=== PATIENT | female | born 1985 | race Caucasian/White ===

== ENCOUNTER 2018-06-02 13:22 | Emergency (ER) | payer OTHER ==
[~2018-06-02] VITALS: Ht 165.1 cm; Wt 67.1 kg
[2018-06-02 13:48] LABS: ABSOLUTE NEUTROPHILS 7.7 thou/uL (1.4-8.2); BASOPHILS 0.5 % (0.0-2.0); EOSINOPHILS 0.7 % (0.0-3.0); HEMATOCRIT 43.3 % (37.0-47.0); HEMOGLOBIN 14.8 gm/dL (12.0-15.0); LYMPHOCYTES 11.1 % (24.0-44.0); MCH 31.8 pg (26.0-34.0); MCHC 34.1 g/dL (28.0-37.0); MCV 93.1 fL (80.0-100.0); MONOCYTES 5.4 % (1.0-8.0); PLATELET COUNT 226 thou/uL (150-400); POLYS 82.3 % (36.0-66.0); RBC 4.65 mil/uL (4.20-5.00); RDW 13.1 % (10.5-14.5); WBC 9.4 thou/uL (4.0-11.0)
[2018-06-02 14:03] LABS: ANION GAP 11 mmol/L (7-16); BUN 17 mg/dL (7-18); CALCIUM 9.4 mg/dL (8.5-10.1); CHLORIDE 99 mmol/L (98-107); CO2 29 mmol/L (21-32); CREATININE 0.7 mg/dL (0.6-1.0); GLUCOSE 101 mg/dL (74-106); POTASSIUM 4.1 mmol/L (3.5-5.1); SODIUM 139 mmol/L (136-145)
[2018-06-02 14:04] LABS: TROPONIN-I <0.06 ng/mL (<0.06)
[2018-06-02 14:45] VITALS: BP 123/82
--- NOTE | 2018-06-03 11:26 | EKG ---
[place] [address] [facility] [place] [address] ELECTROCARDIOGRAM REPORT Name: CADEN LDEEZMA Room #: DEP Aleksandr#: [id number] ������������������ Admission: 06/02/18 ������������������ Attend Phys: Discharge: 06/02/18 ������������������ Date of : 83 Report #: [id number] ����������������������������������������������������������������� [id number] THIS REPORT FOR: //name// [facility] ED Test Date: 2018-06-02 Test Time: 13:44:38 Pat Name: CADEN RYAN Department: Room: Gender: F [employer]: Kath HYLTON : 1985 Requested By: Zoraida Cotton Order Number: [id number] MD: Jac Low Measurements Intervals [place] Rate: 101 P: 65 OK: 173 QRS: 60 QRSD: 85 T: 33 QT: 332 QTc: 431 Interpretive Statements Sinus tachycardia left atrial enlargement Nonspecific ST-T wave changes Baseline wander in lead(s) V4 No previous ECG available for comparison Electronically Signed On 06-03-2018 11:26:49 [employer] by Jac Low [email or web address] ��������������������������������������������� <ELECTRONICALLY SIGNED> ���������������������������������������� By: Jac Low MD ��������������������������������������������� 06/03/18 1126 1344 1344 Jac Low MD /EPI
== END 2018-06-02 15:03 | disposition home or self-care (01) ==
LOC: ER 13:22
PROVIDERS: Student in an Organized Health Care Education/Training Program
DX: E86.0 Dehydration (principal); Z88.5 Allergy status to narcotic agent; Z88.6 Allergy status to analgesic agent; Z88.8 Allergy status to other drugs, medicaments and biological substances